=== PATIENT | female | born 1980 | race Caucasian/White ===

== ENCOUNTER 2016-11-18 03:46 | Emergency (ER) | payer SELFPAY ==
[~2016-11-18 03:46] MED LIST: ANUSOL OINTMENT30 G1 RC; BCP; CLINDAMYCIN HC300 MG PO; EFFEXOR25 MG; EFFEXOR75 MG PO; IBUPROFEN600 M1 PO; IBUPROFEN800 MG PO; KEFLEX500 M4 PO; LAMICTAL; MOTRIN600 MG PO; MOTRIN800 MG PO; NO HOME MEDICATION XX; NO MEDICATIONS; NORCO 5/325 TAB1 TAB PO; NORFLEX100 MG PO; PERCOCET 5-3251 EACH PO; PERCOCET 5/3251 TAB PO; PERI-COLACE TAB1 TAB PO; PRENATAL VITAMI1 T PO; PROVENTIL HFA6.7 GM IH; PROZAC; SKELAXIN800 M1 PO; TOBREX5 M1 LEFT EYE; TRAMADOL HCL50 MG PO; XANAX; ZITHROMAX250 MG
== END 2016-11-18 03:50 ==
LOC: EDMED 03:46
DX: H16.9 Unspecified keratitis (principal)